=== PATIENT | male | born 1950 | race Hispanic/Latino ===

== ENCOUNTER → 2025-05-12 | Outpatient (CLI) | payer OTHER ==
--- NOTE | 2025-05-12 19:22 | HMCSR ---
APPROVED REPORT EXAM: Two-dimensional and M-mode echocardiogram with Doppler and color Doppler. INDICATION ICD: I25.9 Chronic ischemic heart disease, unspecified 2D Dimensions RVDd3.5 cmLVEF(%)65.8 (>50%)LA ESV INDEX (BP)36.53 mL/m2 IVSd0.7 (0.7-1.1cm)FS(%)36 % LVDd4.7 (3.8-5.6cm)LA (2D)5.0 (1.6-4.0cm) PWd1.2 (0.7-1.1cm)Ao Root(2D)3.6 (2.0-3.7cm) IVSs1.2 cmLVOT diam2.4 (1.8-2.4cm) LVDs3.0 (2.5-4.0cm)IVC diam1.5 cm PWs1.5 cm M-Mode Dimensions EPSS0.4 cm LA (MM)5.2 (1.6-4.0cm) Ao Root(MM)3.7 (2.0-3.7cm) Aortic Valve AoV Vmax1.8 m/Andrews Peak GR12.5 mmHgLVOT Vmax1.0 m/s AoV VTI0.4 mAo Mean GR6.6 mmHgLVOT VTI0.29 m MARIIA (VMAX)2.77 cm2AVA (VTI) 3.6 cm2 Mitral Valve MV E Vmax99.9 cm/sDECEL Uyuj453 ms MV A Vmax71.3 cm/sP 1/2 T88 ms E/A ratio1.4MVA (PHT)2.5 cm2 TDI E/E' Bepmvf46.1E/E' Kspbmdb03.9 Medial E' Peak V4.33 cm/sLateral E' Peak V7.18 cm/s Pulmonary Valve PV Vmax0.9 m/sPV VTI0.21 mPV Mean GR2.0 mmHg PV Peak GR2.9 mmHg Tricuspid Valve TR Vmax2.0 m/sRAP (EST) 8 xtHwLYVO61.8 mmHg TR Peak GR16.8 mmHg Left Ventricle The left ventricle is normal size. There is normal left ventricular wall thickness. LVEF is 60-65%. S tage I diastolic dysfunction. Right Ventricle The right ventricle is normal size. Right ventricular systolic function is mildly reduced. Atria The left atrium is mildly dilated. The right atrium is moderately dilated. Aortic Valve Aortic valve is trileaflet, mildly thickened and sclerotic and opens well. Annular calcification note d. Trace of aortic regurgitation is present. There is no aortic valvular stenosis. Mitral Valve There is mitral annular calcification. There is mild mitral valve regurgitation noted. There is no mi tral valve stenosis. Tricuspid Valve The tricuspid valve is normal in structure. There is no tricuspid valve regurgitation noted. Pulmonic Valve The pulmonary valve is normal in structure. There is no pulmonic valvular regurgitation. Great Vessels The aortic root is normal in size. IVC is not well visualized. Pericardium There is no pericardial effusion. Other Information Quality : Adequate Conclusion The left ventricle is normal size. LVEF is 60-65%. Stage I diastolic dysfunction. The right ventricle is normal size. Right ventricular systolic function is mildly reduced. The left atrium is mildly dilated. The right atrium is moderately dilated. There is mild mitral valve regurgitation noted. There is no pericardial effusion.
== END | disposition home or self-care (01) ==
LOC: RAH 12:56
PROVIDERS: ATTEND Chiropractor
DX: I08.0 Rheumatic disorders of both mitral and aortic valves (principal); I25.9 Chronic ischemic heart disease, unspecified
CPT/HCPCS: 93306